=== PATIENT | male | born 2000 | race Caucasian/White ===

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

== ENCOUNTER 2021-10-02 14:26 | Emergency (ER) | payer MEDICAID, OTHER ==
[~2021-10-02] VITALS: Ht 162.6 cm; Wt 84.0 kg
[2021-10-02] MEDS ORDERED: BACITRACIN ZINC OINT UDPKT TOP ONE (14:45)
[2021-10-02] MEDS ORDERED: TETANUS, DIPHTHERIA, PERTUSSIS VAC/PF 0.5ML (>10YR OLD) IM ONE (14:45)
[2021-10-02] MEDS ORDERED: LIDOCAINE HCL/PF 1% 10 MG/ML 5ML VIAL INFIL ONE (14:45)
[2021-10-02 17:26] VITALS: BP 140/95
== END 2021-10-02 17:30 | disposition home or self-care (01) ==
LOC: ER 14:26
DX: S61.210A Laceration without foreign body of right index finger without damage to nail, initial encounter (principal); Z13.9 Encounter for screening, unspecified; W26.0XXA Contact with knife, initial encounter; Y93.89 Activity, other specified; Y92.89 Other specified places as the place of occurrence of the external cause; Y99.8 Other external cause status
CPT/HCPCS: 12001; 73130; 99283; J3490

== ENCOUNTER 2021-10-22 07:15 | Emergency (ER) | payer MEDICAID ==
[~2021-10-22] VITALS: Ht 162.6 cm; Wt 84.0 kg
[2021-10-22 07:58] VITALS: BP 155/110
== END 2021-10-22 08:37 | disposition home or self-care (01) ==
LOC: ER 07:15
DX: Z48.02 Encounter for removal of sutures (principal)
CPT/HCPCS: 99281; Z7610

== ENCOUNTER 2022-04-29 06:43 | Emergency (ER) | payer MEDICAID ==
[~2022-04-29] VITALS: Ht 162.6 cm; Wt 84.0 kg
[2022-04-29 07:02] VITALS: BP 136/103
[2022-04-29] MEDS ORDERED: TOPUD PO (08:15)
== END 2022-04-29 08:57 | disposition home or self-care (01) ==
LOC: ER 06:43
DX: B34.9 Viral infection, unspecified (principal); Z20.822 Contact with and (suspected) exposure to COVID-19
CPT/HCPCS: 71045; 87426; 87804; 99284; C9803

== ENCOUNTER 2022-06-28 08:47 | Emergency (ER) | payer MEDICAID ==
[~2022-06-28] VITALS: Ht 162.6 cm; Wt 89.0 kg
[~2022-06-28 08:47] MED LIST: TOPUD PO
[2022-06-28] MEDS ORDERED: IBUPROFEN 400MG TABLET PO ONE (09:00)
[2022-06-28 10:16] LABS: CLARITY URINE CLEAR (CLEAR); COLOR URINE YELLOW (YELLOW); KETONES URINE NEGATIVE (NEGATIVE); LEUKOCYTE ESTERASE URINE NEGATIVE (NEGATIVE); NITRITE URINE NEGATIVE (NEGATIVE); OCCULT BLOOD URINE NEGATIVE (NEGATIVE); PH URINE 6.5 (4.5-8.0); PROTEIN URINE NEGATIVE (NEGATIVE); SPECIFIC GRAVITY URINE 1.022 (1.005-1.030); UROBILINOGEN URINE 0.2 E.U./dL (0.2-1.0)
[2022-06-28] MEDS ORDERED: IBUP-2028 MT (10:59)
[2022-06-28 12:19] VITALS: BP 155/104
[2022-06-28] MEDS ORDERED: IBUPROFEN 400MG TABLET PO SCH (12:30)
[2022-07-01 19:08] LABS: NEISSERIA GONORRHOEAE NAA Negative (Negative)
== END 2022-06-28 12:29 | disposition home or self-care (01) ==
LOC: ER 08:47
DX: N50.89 Other specified disorders of the male genital organs (principal); R03.0 Elevated blood-pressure reading, without diagnosis of hypertension
CPT/HCPCS: 76870; 81003; 87491; 87591; 93976; 99284